=== PATIENT | male | born 1990 | race African-American/Black ===

== ENCOUNTER 2022-03-18 01:21 | Emergency (ER) | payer SELFPAY ==
[2022-03-18] MEDS ORDERED: Ondansetron PF 4 MG/2 ML Vial ONE (01:41)
== END 2022-03-18 02:58 | disposition home or self-care (01) ==
LOC: ERS 01:21
DX: F10.129 Alcohol abuse with intoxication, unspecified (principal)
CPT/HCPCS: 96374; J2405